=== PATIENT | male | born 2000 | race Two or more races ===

== ENCOUNTER 2022-05-22 20:29 | Emergency (ER) | payer OTHER ==
[~2022-05-22] VITALS: Ht 175.3 cm; Wt 72.7 kg
[~2022-05-22 20:29] MED LIST: FAMO20 PO; METH4TAB3 PO
[2022-05-22] MEDS ORDERED: PredniSONE 20 MG TABLET PO ONE (22:15)
[2022-05-22] MEDS ORDERED: IPRATROPIUM BROMIDE 0.5 MG/2.5 ML NEB SOLUTION NEB ONE (22:15)
[2022-05-22] MEDS ORDERED: ALBUTEROL SULFATE 2.5 MG/0.5 ML NEB SOLUTION NEB ONE (22:15)
[2022-05-22 22:20] LABS: COVID AG,FIA SOURCE NASAL SWAB
[2022-05-22 22:48] LABS: INFLUENZA TYPE A NEGATIVE FOR TYPE A (NEGATIVE); INFLUENZA TYPE B NEGATIVE FOR TYPE B (NEGATIVE)
[2022-05-23] MEDS ORDERED: ALBUTEROL SULFATE 2.5 MG/0.5 ML NEB SOLUTION NEB ONE (01:00)
[2022-05-23] MEDS ORDERED: ALBU8HFA IH (03:01)
[2022-05-23] MEDS ORDERED: PRED-554 PO (03:01)
[2022-05-23 03:34] VITALS: BP 128/75
== END 2022-05-23 03:59 | disposition home or self-care (01) ==
LOC: EMS 20:30
DX: J45.909 Unspecified asthma, uncomplicated (principal); F17.210 Nicotine dependence, cigarettes, uncomplicated; Z20.822 Contact with and (suspected) exposure to COVID-19
CPT/HCPCS: 99291; 71045; 87426; 87804; 94640; J7512; J7613